=== PATIENT | male | born 1965 | race Caucasian/White ===

== ENCOUNTER → 2016-12-09 | Day surgery (SDC) | payer BC, OTHER ==
[~2016-12-09] MED LIST: LIDOCAINE 1% 2 ML INJ ONE; MIDAZOLAM 2 MG/2 ML VIAL ONE; fentaNYL 100 MCG/2 ML INJ ONE
--- NOTE | 2016-12-10 04:17 | GPN ---
[f rep st] PROCEDURE NOTE DATE OF PROCEDURE: 12/09/2016 PROCEDURE PERFORMED: Flexible sigmoidoscopy with polypectomy, argon plasma coagulation. INDICATIONS AND PREPROCEDURE DIAGNOSIS: Known history of a tubulovillous polyp at 38 cm, initially removed in 2010. It has been recurrent, including in 2014, when it was removed with standard hot polypectomy snare, and marked with Ramila ink. In August of 2016, it again had recurred. Pathology then again returned tubulovillous. Repeat lower endoscopy now, to both remove but also treat the base with argon plasma coagulation, to try and prevent future recurrence. Of note, he has a history of ulcerative colitis. He is doing relatively well, off his 6-mercaptopurine. He can have some loose stool in the morning, but for the most part, it does not bother him, and is just 1 or 2 times. He did stop metformin, without any change. He has tried Imodium and Lomotil, without much benefit. POSTPROCEDURE DIAGNOSIS: Polyp, as below, removed. Treated with argon plasma coagulation, as below. PREMEDICATION: None. COMPLICATIONS: None. FINDINGS: After informed consent was obtained, the patient was placed in left lateral decubitus position. Video lower endoscope was placed in the rectum advanced to 38 cm. The recurrent polyp was again seen, approximately 9 mm in size. Ramila ink was seen in the area. The Ramila ink had faded somewhat. The polyp was removed using snare polypectomy, after a saline lift. Then, the entire base was treated with argon plasma coagulation, at the recommended settings, approximately 18 pulses, with a good eschar. Finally, repeat Ramila ink was injected around the postpolypectomy site, 2 cc total. Otherwise, signs of "burnt out" ulcerative colitis only were seen. IMPRESSION: Recurrent tubulovillous adenoma, as above. Treated as above, with both a snare lift, deep polypectomy, as well as now argon plasma coagulation. Hopefully, with these 2 new, different modalities, he will not have a recurrence. PLAN: 1. Pathology pending, but suspect will show just tubulovillous results. 2. Repeat flexible sigmoidoscopy in 9 months, to ensure no regrowth. We will do this in our outpatient endoscopy center, with just a standard flexible sigmoidoscopy prep, and with no IV sedation. My nurse will call him to arrange this when it is time. 3. Otherwise, for his occasional loose stools in the morning, no further management needed. He states it does not bother him much. Thank you for allowing me to help in the management of patient. Copy requested to: Dr. Paty Kahn /[id number]/MODL MTDD
== END | disposition home or self-care (01) ==
LOC: FSGY 14:40
PROVIDERS: ATTEND Internal Medicine Gastroenterology
PROC: 0DBN8ZZ Excision of Sigmoid Colon, Via Natural or Artificial Opening Endoscopic (ICD-10-PCS; principal; 2016-12-09 16:00)
PROC: 0D5N8ZZ Destruction of Sigmoid Colon, Via Natural or Artificial Opening Endoscopic (ICD-10-PCS; principal; 2016-12-09 16:00)
DX: D12.5 Benign neoplasm of sigmoid colon (principal)
CPT/HCPCS: J2250; J3010